=== PATIENT | male | born 1970 ===

== ENCOUNTER 2022-02-13 11:00 | Inpatient (IN) | payer OTHER ==
[~2022-02-13] VITALS: Ht 172.7 cm; Wt 84.8 kg
[2022-02-13] MEDS ORDERED: ATORVASTATIN CA40 MG PO (13:18)
[2022-02-13] MEDS ORDERED: ZESTRIL10 M1 PO (13:19)
[2022-02-13] MEDS ORDERED: SYNTHROID137 MCG PO (13:19)
[2022-02-13] MEDS ORDERED: GLIPIZIDE XL10 MG PO (13:19)
[2022-02-13] MEDS ORDERED: JANUMET 50-1,01 EACH PO (13:20)
== END 2022-02-19 19:46 | disposition home or self-care (01) | DRG 331 ==
LOC: SURG 02-17 07:00 → O/R 02-17 07:07 → SURG 02-17 11:00
PROVIDERS: ADMIT Colon & Rectal Surgery; ATTEND Colon & Rectal Surgery
PROC: 0DBP4ZZ Excision of Rectum, Percutaneous Endoscopic Approach (ICD-10-PCS; 2022-02-17)
PROC: 0DJD8ZZ Inspection of Lower Intestinal Tract, Via Natural or Artificial Opening Endoscopic (ICD-10-PCS; 2022-02-17)
PROC: 0DTN4ZZ Resection of Sigmoid Colon, Percutaneous Endoscopic Approach (ICD-10-PCS; principal; 2022-02-17 07:00)
DX: K57.32 Diverticulitis of large intestine without perforation or abscess without bleeding (principal); Z20.822 Contact with and (suspected) exposure to COVID-19

== ENCOUNTER 2023-05-02 06:52 | Day surgery (SDC) | payer OTHER ==
[~2023-05-02 06:52] MED LIST: ATORVASTATIN CA40 MG PO; GLIPIZIDE XL10 MG PO; JANUMET 50-1,01 EACH PO; SYNTHROID137 MCG PO; ZESTRIL10 M1 PO
== END 2023-05-02 12:25 | disposition home or self-care (01) ==
LOC: AMB-ENDOS 06:52
PROVIDERS: ATTEND Colon & Rectal Surgery
DX: D12.3 Benign neoplasm of transverse colon (principal); K57.32 Diverticulitis of large intestine without perforation or abscess without bleeding; Z20.822 Contact with and (suspected) exposure to COVID-19; K64.8 Other hemorrhoids